=== PATIENT | male | born 1950 | race American Indian/Alaskan Native ===

== ENCOUNTER 2017-08-12 08:23 | Outpatient (CLI) | payer BC ==
--- NOTE | 2017-08-13 07:55 | Ultrasound Report ---
ULTRASOUND THYROID SCAN History: Thyroid nodule. Comparison: None. Findings: The thyroid gland is mildly enlarged with a heterogeneous echotexture. The right thyroid lobe measures 5.7 x 2.4 x 1.7 cm. The left thyroid lobe measures 5.2 x 1.8 x 2.1 cm. There are multiple bilateral thyroid nodules and cysts. Most of these nodules/cysts are tiny measuring only 5 mm. The largest nodule within the right thyroid lobe measures 2.0 x 1.8 x 1.1 cm near the inferior pole. The largest nodule in the left thyroid lobe measures 1.0 x 0.7 x 0.7 cm near mid pole. The isthmus is thickened up to 1.8 cm and contains a nodule measuring 1.1 x 0.9 x 0.9 cm. No cervical adenopathy is detected. IMPRESSION: Mild thyromegaly with bilateral thyroid nodules and cysts. No suspicious nodule with ill-defined borders, calcifications and increased blood flow is detected. This probably represents a multinodular goiter. Consider surveillance.
== END 2017-08-12 08:24 | disposition home or self-care (01) ==
LOC: US 08:23
PROVIDERS: ATTEND Internal Medicine Geriatric Medicine
DX: E01.0 Iodine-deficiency related diffuse (endemic) goiter (principal)
CPT/HCPCS: 76536

== ENCOUNTER 2018-07-06 08:03 | Outpatient (CLI) | payer BC ==
--- NOTE | 2018-07-06 13:15 | Fluoroscopy Report ---
UPPER GI SERIES WITH AIR-CONTRAST History: Oropharyngeal dysphagia. Findings: 38 fluoroscopic images were captured during this exam. Deglutition appears normal. Structures of the pharynx and larynx appear normal. No aspiration. There is suggestion of mild smooth narrowing of the distal esophagus. No evidence for mass or obstruction. A barium tablet appeared to hang up for a small amount of time in the distal esophagus at the assumed area of mild narrowing. The barium tablet eventually passed. There is also a very small web along the anterior cervical esophagus. This is best demonstrated on the fluoroscopic images. Narrowing in this area is estimated at 10%. No hiatal hernia or reflux was witnessed during this exam. There is normal filling of the gastric cavity, duodenal bulb and duodenal sweep no mucosal defect is appreciated. Gastric motility did appear decreased throughout this examination. 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 Narrowing in this area is estimated at 10%. The clinical significance of this is doubtful. Mild smooth narrowing of the distal esophagus without focal lesion, see above. Decreased gastric motility was suspected.
--- NOTE | 2018-07-06 18:38 | Ultrasound Report ---
FINAL REPORT PROCEDURE: US THYROID SCAN TECHNIQUE: Focused real-time sonography in multiple planes of the below described organs, glands and soft tissues of the neck was performed with image documentation. CPT 94998 HISTORY: THYROID NODULE COMPARISON: No prior studies are available for comparison. FINDINGS: There are numerous nodules identified bilaterally. RIGHT: Right thyroid lobe measures 4.9 centimeters craniocaudal x 2.5 centimeters AP x 2.0 centimeters trans verse. Within the right thyroid lobe largest solid nodule is seen in the midpole and measures 1.6 x 1.3 x 1. 1 centimeters. There is a hypoechoic nodule or cyst in the superior to midpole measuring 0.4 x 0.3 x 0.3 centimeters. In the superior pole of the right thyroid lobe there is a complex cyst which measure s 0.5 x 0.3 x 0.4 centimeters. In the lateral right thyroid lobe there is a solid nodule which measur es 0.7 x 0.5 x 0.7 centimeters. In the mid to lower pole there is a solid nodule which measures 1.1 x 1.0 x 0.9 centimeters. LEFT: Left thyroid lobe measures 5.3 centimeters craniocaudal x 2.4 centimeters AP x 2.1 centimeters transv erse. In the left thyroid lobe there is a complex cyst in the medial/superior thyroid lobe which measures 0 .4 x 0.4 x 0.4 centimeters. There is a coarse calcification adjacent to this which measures 0.3 x 0.2 x 0.3 centimeters. There is a complex lesion with solid and cystic components in the midpole which m easures 1.2 x 0.8 x 1.1 centimeters. In the lateral midpole there is a solid nodule which measures 1. 1 x 0.8 x 1.0 centimeters. There is a complex cystic structure in the midpole which measures 0.9 x 0. 6 x 0.7 centimeters. Largest solid nodule is in the lower pole and measures 1.5 x 1.2 x 1.0 centimete rs. ISTHMUS: The thyroid isthmus measures 1.0 centimeters AP. There is a solid nodule in the left aspect of the isthmus which measures 1.6 x 1.6 x 1.8 centimeters. IMPRESSION: There is a 1.6 centimeter solid nodule in the left isthmus. Numerous bilateral thyroid nodules. Large st right thyroid lobe solid nodule is in the mid to lower pole and measures up to 1.6 centimeters. La rgest nodule in the left thyroid lobe is in the inferior pole and measures up to 1.5 centimeters.Ther e is a solid nodule in the left aspect of the isthmus which measures 1.6 x 1.6 x 1.8 centimeters.
== END 2018-07-06 08:04 | disposition home or self-care (01) ==
LOC: FLUORO 08:03
PROVIDERS: ATTEND Internal Medicine Geriatric Medicine
DX: R13.12 Dysphagia, oropharyngeal phase (principal); E04.2 Nontoxic multinodular goiter
CPT/HCPCS: 74247; 76536

== ENCOUNTER 2018-12-27 17:43 | Emergency (ER) | payer BC ==
[2018-12-27 17:52] VITALS: BP 144/75
--- NOTE | 2018-12-27 17:52 | Event Note ---
ED Screening Note Date of service: 12/27/18 Time: 17:51 ED Screening Note: 68 y/o male comes in left knee pain and swelling since Thursday. Denies any trauma. This initial assessment/diagnostic orders/clinical plan/treatment(s) is/are subject to change based on patients health status, clinical progression and re- assessment by fellow clinical providers in the ED. Further treatment and workup at subsequent clinical providers discretion. Patient/guardian urged not to elope from the ED as their condition may be serious if not clinically assessed and managed. Initial orders include:
--- NOTE | 2018-12-27 18:38 | XRay Report ---
LEFT KNEE 2 VIEW(S) INDICATION / CLINICAL INFORMATION: left knee pain for 2 days COMPARISON: None available. FINDINGS: BONES / JOINT(S): No acute fracture or subluxation. No significant arthritis. Small suprapatellar dayana nt effusion. SOFT TISSUES: No significant abnormality. ADDITIONAL FINDINGS: None. Signer Name: Fuad Hernandez MD Signed: 12/27/2018 6:33 PM Workstation Name: [id number]
[2018-12-27] MEDS ORDERED: TYLENOL PO ONE (19:36)
[2018-12-27] MEDS ORDERED: IBUPROFEN PO ONE (19:36)
[2018-12-27] MEDS ORDERED: DELTASONE PO ONE (19:36)
--- NOTE | 2018-12-27 19:54 | Emergency Department Report ---
ED Extremity Problem HPI - General Chief complaint: Extremity Injury, Lower Stated complaint: LFT KNEE PAIN/ REDNEES/EDEMA Time Seen by Provider: 12/27/18 17:50 Source: patient Mode of arrival: Ambulatory Limitations: No Limitations - History of Present Illness Initial comments: Patient is a 68-year-old -[place] male with a history of hypertension, chronic osteoarthritis and oiq-cyhsymk-atfhkbsfq diabetes who presents to the ED with complaint of acute onset persistent nontraumatic left knee joint pain or swelling over the last 2 days. Patient states that the pain is worse with ambulation or weight-bearing. Patient denies fall, traumatic injury, over- exertion, numbness or tingling or weakness of her left leg, left hip pain, low back pain, dizziness, chest pain or shortness of breath, fever and chills. MD Complaint: extremity pain (left knee), extremity swelling (left knee), joint swelling (left knee), joint paint (left knee) -: Sudden, days(s) (2) Location: left, lower extremity (knee), knee -: Yes arthralgia, No fever, No associated dyspnea, No associated chest pain Radiation: none Severity scale (0 -10): 7 Quality: aching, sharp, constant Consistency: constant Improves with: movement, rest Worsens with: weight bearing, exertion, palpation Associated Symptoms: denies other symptoms, arthralgias. denies: chest pain, shortness of breath, fever, myalgias - Related Data Previous Rx's Medication Instructions Recorded Last Taken Type Naproxen [Naprosyn] 500 mg PO Q12H PRN #20 tablet 12/27/18 Unknown Rx traMADol [Ultram] 50 mg PO Q6HR PRN #15 tablet 12/27/18 Unknown Rx Allergies Allergy/AdvReac Type Severity Reaction Status Date / Time No Known Allergies Allergy Unverified 02/14/16 10:35 ED Review of Systems ROS: Stated complaint: LFT KNEE PAIN/ REDNEES/EDEMA Other details as noted in HPI Constitutional: denies: chills, fever Eyes: denies: eye pain, eye discharge, vision change ENT: denies: ear pain, throat pain Respiratory: denies: cough, shortness of breath, wheezing Cardiovascular: denies: chest pain, palpitations Endocrine: no symptoms reported Gastrointestinal: denies: abdominal pain, nausea, diarrhea Genitourinary: denies: urgency, dysuria Musculoskeletal: joint swelling (left knee), arthralgia (left knee). denies: back pain Skin: denies: rash, lesions Neurological: denies: headache, weakness, paresthesias Psychiatric: denies: anxiety, depression Hematological/Lymphatic: denies: easy bleeding, easy bruising ED Past Medical Hx - Past Medical History Previous Medical History?: Yes Hx Hypertension: Yes Hx Diabetes: Yes Additional medical history: dementia. 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 hip surgery as a teenager after hip fx - Social History Smoking Status: Never Smoker Substance Use Type: None - Medications Home Medications: Home Medications Medication Instructions Recorded Confirmed Last Taken Type Naproxen [Naprosyn] 500 mg PO Q12H PRN #20 tablet 12/27/18 Unknown Rx traMADol [Ultram] 50 mg PO Q6HR PRN #15 tablet 12/27/18 Unknown Rx ED Physical Exam - General Limitations: No Limitations General appearance: alert, in no apparent distress - Head Head exam: Present: atraumatic, normocephalic, normal inspection - Eye Eye exam: Present: normal appearance, PERRL, EOMI. Absent: scleral icterus, conjunctival injection, nystagmus, periorbital swelling, periorbital tenderness Pupils: Present: normal accommodation - ENT ENT exam: Present: normal exam, normal orophraynx, mucous membranes moist, TM's normal bilaterally, normal external ear exam - Neck Neck exam: Present: normal inspection, full ROM. Absent: tenderness, meningismus, lymphadenopathy, thyromegaly - Respiratory Respiratory exam: Present: normal lung sounds bilaterally. Absent: respiratory distress, wheezes, rales, rhonchi, chest wall tenderness, accessory muscle use, decreased breath sounds, prolonged expiratory - Cardiovascular Cardiovascular Exam: Present: regular rate, normal rhythm, normal heart sounds. Absent: systolic murmur, diastolic murmur, rubs, gallop - GI/Abdominal GI/Abdominal exam: Present: soft, normal bowel sounds. Absent: tenderness, guarding, rebound, hyperactive bowel sounds, hypoactive bowel sounds, organome dina, pulsatile mass, hernia - Rectal Rectal exam: Present: deferred - Extremities Exam Extremities exam: Present: normal inspection, full ROM, tenderness (left knee ), normal capillary refill, joint swelling (left knee) - Back Exam Back exam: Present: normal inspection, full ROM. Absent: tenderness, CVA tenderness (R), CVA tenderness (L), muscle spasm, paraspinal tenderness - Neurological Exam Neurological exam: Present: alert, oriented X3, CN II-XII intact, normal gait, reflexes normal - Psychiatric Psychiatric exam: Present: normal affect, normal mood - Skin Skin exam: Present: warm, dry, intact, normal color. Absent: rash ED Course Vital Signs 12/27/18 17:50 Temperature 98 F Pulse Rate 77 Respiratory 16 Rate Blood Pressure 144/75 O2 Sat by Pulse 97 Oximetry - Reevaluation(s) Reevaluation #1: 12/27/18 19:57 This is a 68-year-old male with a history of chronic osteoarthritis, hypertension and ctc-kicmepu-qwobuxplo diabetes who presented to the ED with left knee pain for 2 days. In the ED, the patient is alert and oriented 3 and is not in distress but pain. Patient was treated for pain and left knee x-ray shows no acute fractures or subluxations but a small effusion. Patient's left knee was splinted with Kel wrap and the patient is sent home on pain medications and advised to follow-up with his primary care physician in 5-7 days for reevaluation or return to the ED immediately if symptoms get worse. ED Medical Decision Making - Radiology Data Radiology results: report reviewed, image reviewed LEFT KNEE X-RAY:NO ACUTE FRACTURES OR SUBLUXATIONS, BUT A SMALL EFFUSION - Medical Decision Making This is a 68-year-old male with a history of chronic osteoarthritis, hypertension and yka-stqvzse-mnlmmhhtf diabetes who presented to the ED with left knee pain for 2 days. In the ED, the patient is alert and oriented 3 and is not in distress but pain. Patient was treated for pain and left knee x-ray shows no acute fractures or subluxations but a small effusion. Patient's left knee was splinted with Kel wrap and the patient is sent home on pain medications and advised to follow-up with his primary care physician in 5-7 days for reevaluation or return to the ED immediately if symptoms get worse. - Differential Diagnosis Osteoarthritis; muscle strain; gouty arthropathy Critical care attestation.: If time is entered above; I have spent that time in minutes in the direct care of this critically ill patient, excluding procedure time. ED Disposition Clinical Impression: Degenerative joint disease of left knee Qualifiers: Osteoarthritis type: primary Qualified Code(s): M17.12 - Unilateral primary osteoarthritis, left knee Muscle strain of left knee Qualifiers: Encounter type: initial encounter Qualified Code(s): S86.912A - Strain of unspecified muscle(s) and tendon(s) at lower leg level, left leg, initial encounter Disposition: TO HOME OR SELFCARE Is pt being admited?: No Does the pt Need Aspirin: No Condition: Stable Instructions: Knee Effusion (ED), Knee Pain (ED), Osteoarthritis (ED) Additional Instructions: Take medications with food, drink plenty of fluids and follow-up with your primary care physician in 5-7 days for reevaluation. Return to the ED immediately if symptoms get worse. Prescriptions: Naproxen [Naprosyn] 500 mg PO Q12H PRN #20 tablet PRN Reason: Pain , Severe (7-10) traMADol [Ultram] 50 mg PO Q6HR PRN #15 tablet PRN Reason: Pain Referrals: [facility] [Outside] - 3-5 Days Time of Disposition: 19:54 Print Language: LATVIAN
== END 2018-12-27 20:10 | disposition home or self-care (01) ==
LOC: ED 17:43
DX: S86.912A Strain of unspecified muscle(s) and tendon(s) at lower leg level, left leg, initial encounter (principal); M17.12 Unilateral primary osteoarthritis, left knee; I10 Essential (primary) hypertension; E11.9 Type 2 diabetes mellitus without complications; E78.00 Pure hypercholesterolemia, unspecified; F03.90 Unspecified dementia, unspecified severity, without behavioral disturbance, psychotic disturbance, mood disturbance, and anxiety; Z79.899 Other long term (current) drug therapy; X58.XXXA Exposure to other specified factors, initial encounter; Y93.89 Activity, other specified; Y92.89 Other specified places as the place of occurrence of the external cause; Y99.8 Other external cause status
CPT/HCPCS: 73560; 99283; J7512

== ENCOUNTER 2019-09-05 07:53 | Emergency (ER) | payer BC ==
[2019-09-05 08:02] VITALS: BP 144/85
[2019-09-05] MEDS ORDERED: COLCHICINE 0.6 MG CAP PO ONE (08:59)
[2019-09-05] MEDS ORDERED: IBUPROFEN 800 MG TAB PO ONE (08:59)
--- NOTE | 2019-09-05 09:48 | XRay Report ---
LEFT KNEE 3 VIEWS INDICATION: knee pain. COMPARISON: None. IMPRESSION: No acute osseous abnormality or joint pathology is appreciated. Mild retropatellar spur ring and enthesophytes from the superior and inferior patellar are noted. A large joint effusion exte nds to the suprapatellar bursa on the lateral image which could indicate internal derangement. Correl ate with the patient and consider further evaluation with MRI as an outpatient. Signer Name: Onel Meadows Jr, MD Signed: 09/05/2019 9:43 AM Workstation Name: [id number]
--- NOTE | 2019-09-05 11:56 | Emergency Department Report ---
ED Lower Extremity HPI - General Chief Complaint: Extremity Problem,Nontraumatic Stated Complaint: LFT KNEE PAIN Time Seen by Provider: 09/05/19 08:45 Source: patient Mode of arrival: Ambulatory Limitations: No Limitations - History of Present Illness Initial Comments: This is a 69-year-old male nontoxic, well nourished in appearance, no acute signs of distress presents to the ED with c/o of right knee pain days. Patient denies any injuries. Patient denies any other trauma. Patient denies any numbness, tingling, fever, chills, nausea, vomiting, chest pain, shortness of breath, headache, stiff neck. Patient denies any joint swelling or joint redness. Patient denies decreased range of motion. Some pain with walking. Patient denies any allergies. MD Complaint: knee injury -: days(s) Injury: Knee: Right Severity: mild Severity scale (0 -10): 3 Improves With: immobilization Worsens With: weight bearing Associated Symptoms: swelling, able to partially bear weight, ambulatory. denies: snap/pop sensation, numbness, tingling, unable to bear weight - Related Data Previous Rx's Medication Instructions Recorded Last Taken Type Naproxen [Naprosyn] 500 mg PO Q12H PRN #20 tablet 12/27/18 Unknown Rx traMADoL [Ultram] 50 mg PO Q6HR PRN #15 tablet 12/27/18 Unknown Rx Colchicine 0.6 mg PO DAILY #5 capsule 09/05/19 Unknown Rx Naproxen 500 mg PO Q12H PRN #20 tablet 09/05/19 Unknown Rx Allergies Allergy/AdvReac Type Severity Reaction Status Date / Time No Known Allergies Allergy Unverified 02/14/16 10:35 ED Review of Systems ROS: Stated complaint: LFT KNEE PAIN Other details as noted in HPI Constitutional: denies: chills, fever Eyes: denies: eye pain, eye discharge, vision change ENT: denies: ear pain, throat pain Respiratory: denies: cough, shortness of breath, wheezing Cardiovascular: denies: chest pain, palpitations Endocrine: no symptoms reported Gastrointestinal: denies: abdominal pain, nausea, diarrhea Genitourinary: denies: urgency, dysuria Musculoskeletal: denies: back pain, joint swelling, arthralgia Skin: denies: rash, lesions Neurological: denies: headache, weakness, paresthesias Psychiatric: denies: anxiety, depression Hematological/Lymphatic: denies: easy bleeding, easy bruising ED Past Medical Hx - Past Medical History Previous Medical History?: Yes Hx Hypertension: Yes Hx Diabetes: Yes Additional medical history: dementia. 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 hip surgery as a teenager after hip fx - Social History Smoking Status: Former Smoker Substance Use Type: None - Medications Home Medications: Home Medications Medication Instructions Recorded Confirmed Last Taken Type Naproxen [Naprosyn] 500 mg PO Q12H PRN #20 tablet 12/27/18 Unknown Rx traMADoL [Ultram] 50 mg PO Q6HR PRN #15 tablet 12/27/18 Unknown Rx Colchicine 0.6 mg PO DAILY #5 capsule 09/05/19 Unknown Rx Naproxen 500 mg PO Q12H PRN #20 tablet 09/05/19 Unknown Rx ED Physical Exam - General Limitations: No Limitations General appearance: alert, in no apparent distress - Head Head exam: Present: atraumatic, normocephalic - Extremities Exam Extremities exam: Present: normal inspection, full ROM, tenderness, normal capillary refill, joint swelling. Absent: calf tenderness - Expanded Lower Extremity Exam Left Hip exam: Present: normal inspection, full ROM. Absent: tenderness, swelling Upper Leg exam: Present: normal inspection, full ROM. Absent: tenderness, swelling Knee exam: Present: normal inspection, full ROM, tenderness, swelling, full knee extension. Absent: abrasion, laceration, ecchymosis, deformity, crepidus, dislocation, erythema, effusion, pain w/ pronation/supination, pain/laxity with valgus, pain/laxity with varus Lower Leg exam: Present: normal inspection, full ROM. Absent: tenderness, swelling Ankle exam: Present: normal inspection, full ROM. Absent: tenderness, swelling Foot/Toe exam: Present: normal inspection, full ROM. Absent: tenderness, swelling Neuro vascular tendon exam: Present: no vascular compromise Gait: Positive: observed and normal - Back Exam Back exam: Present: normal inspection, full ROM - Neurological Exam Neurological exam: Present: alert, oriented X3, normal gait - Psychiatric Psychiatric exam: Present: normal affect, normal mood - Skin Skin exam: Present: warm, dry, intact, normal color. Absent: rash ED Course Vital Signs 09/05/19 09/05/19 08:01 09:35 Temperature 98.1 F Pulse Rate 86 Respiratory 20 18 Rate Blood Pressure 144/85 O2 Sat by Pulse 99 Oximetry - Reevaluation(s) Reevaluation #1: 09/05/19 11:54 Patient is speaking in full sentences with no signs of distress noted. - Consultations Consultation #1: 09/05/19 11:55 Patient has been consulted with Anayeli Mazariegos about patient history, physical exam, and labs/imaging studies and agrees to ED plan of care and discharge plan of care. ED Lower Extremity MDM - Medical Decision Making This is a 69-year-old male that presents with left knee gout. Patient is stable and was examined by me. I referred patient to an orthopedic doctor for further evaluation for possible MRI. X-ray has been obtained and dictated by the radiologist. Patient is notified of the x-ray report with noted by the patient. Patient does have normal gait with no tenderness and no joint swelling. No ecchymosis. no joint redness. Not warm to touch. No signs of cellulites present. Patient was instructed to RICE therapy. Patient received Motrin and colchicine for pain. Patient is discharged with naproxen and colchicine. At time of discharge, the patient does not seem toxic or ill in appearance. No acute signs of distress noted. Patient agrees to discharge treatment plan of care. No further questions noted by the patient. - Differential Diagnosis Septic joint, fracture, strain, gout Critical care attestation.: If time is entered above; I have spent that time in minutes in the direct care of this critically ill patient, excluding procedure time. ED Disposition Clinical Impression: Gout of left knee Disposition: DC-01 TO HOME OR SELFCARE Is pt being admited?: No Does the pt Need Aspirin: No Condition: Stable Instructions: Acute Gouty Arthritis (ED) Additional Instructions: Follow-up with a primary care and orthopedic doctor in 3-5 days or if symptoms worsen and continue return to emergency room as soon as possible. Prescriptions: Colchicine 0.6 mg PO DAILY #5 capsule Naproxen 500 mg PO Q12H PRN #20 tablet PRN Reason: Pain , Severe (7-10) Referrals: VIK COLON MD [Primary Care Provider] - 3-5 Days JUNE GUERRA MD [Staff Physician] - 3-5 Days BENJAMIN BAZAN MD [Staff Physician] - 3-5 Days [facility] [Provider Group] - 3-5 Days
== END 2019-09-05 12:00 | disposition home or self-care (01) ==
LOC: ED 07:53
DX: M10.9 Gout, unspecified (principal); M25.562 Pain in left knee; I10 Essential (primary) hypertension; E11.9 Type 2 diabetes mellitus without complications; Z98.890 Other specified postprocedural states; Z87.891 Personal history of nicotine dependence; Z79.899 Other long term (current) drug therapy
CPT/HCPCS: 36415; 84550; 99283

== ENCOUNTER 2020-03-01 10:15 | Outpatient (CLI) | payer BC, MEDICARE ==
--- NOTE | 2020-03-01 12:11 | XRay Report ---
ABDOMEN 3 VIEW(S) INDICATION / CLINICAL INFORMATION: DIARRHEA,PAIN IN THE ABDOMEN. COMPARISON: None available. FINDINGS: TUBES / LINES: None. BOWEL GAS PATTERN: No significant abnormality. FREE AIR / EXTRALUMINAL GAS: None seen. ADDITIONAL FINDINGS: No significant additional findings. IMPRESSION: 1. No significant abnormality. Signer Name: Tao Andrew MD Signed: 03/01/2020 12:06 PM Workstation Name: [id number]
--- NOTE | 2020-03-01 16:08 | Cat Scan Report ---
CT abdomen pelvis wo/w con INDICATION: ABDOMEN PAIN. COMPARISON: None TECHNIQUE: Abdominal and pelvic CT exam performed. All CT scans at this location are performed using CT dose reduction for ALARA by means of automated exposure control. FINDINGS: CT ABDOMEN and PELVIS: Lung Bases: No significant abnormality. Liver: There is a 1.9 cm lesion in hepatic segment 2 which demonstrates avid postcontrast enhancement more than the blood pool. The lesion bulges the contour of the liver. It does not demonstrate delaye d washout but matches blood pool on delayed imaging. There is an arterial feeder and there are surrou nding increased contrast opacification on arterial imaging consistent with shunting. No early drainin g vein is identified. Biliary: No significant abnormality. Spleen: No significant abnormality. Pancreas: No significant abnormality. Adrenals: No significant abnormality. Kidneys: Multiple hypoattenuating renal cysts. Lymphatics: No lymphadenopathy. Vasculature: No significant abnormality. Bowel/Peritoneum: No significant abnormality. Normal appendix. Pelvis: Moderate prostatic enlargement. Osseous Structures: No aggressive osseous lesion. Additional Findings: None IMPRESSION: 1. 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 Signer Name: Johnathan Adams MD Signed: 03/01/2020 4:03 PM Workstation Name: [id number]
== END 2020-03-01 10:16 | disposition home or self-care (01) ==
LOC: CT 10:15
PROVIDERS: ATTEND Internal Medicine Geriatric Medicine
DX: K76.9 Liver disease, unspecified (principal); N28.1 Cyst of kidney, acquired; N40.0 Benign prostatic hyperplasia without lower urinary tract symptoms; R31.0 Gross hematuria; R19.7 Diarrhea, unspecified
CPT/HCPCS: 36415; 74019; 74178; 82565; 84520; Q9967; 74170